=== PATIENT | male | born 1945 | race Caucasian/White ===

== ENCOUNTER 2016-11-23 00:18 | Day surgery (SDC) | payer MEDICARE, OTHER ==
[2016-11-23] VITALS (9 sets, daily range): BP systolic 103–134; BP diastolic 62–86; PULSE 56–110; RESP 14–24; O2SAT 93–100
[~2016-11-23] VITALS: Ht 177.8 cm; Wt 79.5 kg
[~2016-11-23 00:18] MED LIST: FELO5TAB4 PO; FLUT9.9S NS; GLUC-167 PO; MULT-666 PO; WARF5TAB7 PO; ZINC30TA2 PO
[2016-11-23] MEDS ORDERED: 0.9% Sodium Chloride 1,000 ML ONE (10:00)
[2016-11-23] MEDS ORDERED: Atropine 1 mg/10 mL (Code) Syringe ONE (11:23)
[2016-11-23] MEDS ORDERED: Methohexital 10 mg/mL 50 mL Inj ONE (11:23)
[2016-11-23] MEDS ORDERED: Flumazenil 0.1 mg/mL 5 mL Inj IV ONE (11:24)
--- NOTE | 2016-11-23 11:37 | NUR ---
Admit [facility] Admitted to [facility] about 1030. VSS. Denies pain. Tele Afib. INR 3.3. See EMR for further info and assessment. IV started. Procedure and recovery reviewed. Verbalizes understanding. Awaiting MD.
--- NOTE | 2016-11-23 12:03 | NUR ---
Procedure Dr. Dimas in and consented pt. about 1145. Procedure commenced with Brevital 40mg and Versed 1 mg at 1147. Cardioverted to SR with PACs and PVCs in 60's at 1148 with 200J. Monitor per orders.
--- NOTE | 2016-11-23 12:12 | PROCED ---
[address] [address] PROCEDURE NOTE PATIENT: YVROSE PICKENS : 1945 MR#: [id number] ADMIT: 11/23/2016 JOB ID: [id number] DATE OF SERVICE: 11/23/2016 PREOPERATIVE DIAGNOSIS(ES): Atrial fibrillation. POSTOPERATIVE DIAGNOSIS(ES): Sinus rhythm. PROCEDURE PERFORMED: Direct current cardioversion. SURGEON: Chin Dimas MD, electrophysiology attending. SEDATION: Versed 1 mg, and 40 mg of Brevital were utilized for appropriate level of sedation. INDICATION: The patient is a pleasant 71-year-old man with atrial fibrillation, status post ablation, who comes in for a cardioversion after recurrence of atrial fibrillation and confirmation of adequate anticoagulation. We discussed risks and benefits at length. PROCEDURE DESCRIPTION: Following informed signed consent, the patient was taken to the procedure suite in a fasting state where defibrillator patches were placed in the anterior and posterior positions. After adequate sedation, a 200 joule biphasic synchronized shock was used to convert him to a sinus rhythm. He will be allowed to recover and discharged home for close followup. COMPLICATIONS: None. ESTIMATED BLOOD LOSS: Nonapplicable. IMPRESSION: Successful direct current cardioversion. PLAN: 1. Recovery and discharge from the [facility]. 2. Continue anticoagulation with therapeutic INRs. 3. Follow up with Sanchez Tello PA-C in clinic in 3-4 weeks. ATTENDING STATEMENT: Chin Dimas MD, electrophysiology attending, was present for and performed all aspects of this procedure.
--- NOTE | 2016-11-23 12:55 | NUR ---
Discharge Eating and drinking by 1215. VS continued stable and maintained SR-SB with PACs and PVCs. C/O discomfort in patch area but not unusually red. Discussed techniques and products to try and verbalizes understanding. States he has had this with other cardioversions. Discharge instructions given, see sheets. Verbalizes understanding. IV discontinued intact. Discharged ambulatory with all belongings and in no acute distress. at 1255.
== END 2016-11-23 23:59 | disposition home or self-care (01) ==
LOC: SPI 00:18
PROVIDERS: ATTEND Internal Medicine Cardiovascular Disease
DX: I48.0 Paroxysmal atrial fibrillation (principal); Z79.01 Long term (current) use of anticoagulants; Z86.718 Personal history of other venous thrombosis and embolism; I34.0 Nonrheumatic mitral (valve) insufficiency; I42.0 Dilated cardiomyopathy; Z98.890 Other specified postprocedural states
CPT/HCPCS: 92960; 93005; 94799; J2250; J7030